=== PATIENT | female | born 1970 | race Caucasian/White ===

== ENCOUNTER 2024-07-30 12:39 | Emergency (ER) | payer MEDICAID ==
[~2024-07-30] VITALS: Ht 162.6 cm; Wt 49.5 kg
[~2024-07-30 12:39] MED LIST: ALPR-304 PO; ALPR-624 PO; CEPH-571 PO; DULO-31 PO; LANS30CA37 PO; RANI-320 PO
[2024-07-30 12:50] VITALS: TEMP 97.5
[2024-07-30] MEDS: ipratropium/albuterol 3ml nebule NEB PRN (13:02)
[2024-07-30] MEDS ORDERED: albuterol 2.5 MG/3 ML nebule CONTNEB PRN (13:05)
[2024-07-30] MEDS: methylPREDNISolone sod succ 125mg/2ml vial IV ONE (13:07)
[2024-07-30 13:09] VITALS: PULSE 87; RESP 16; O2SAT 97
[2024-07-30] MEDS: magnesium sulf-water 2g/50mL 50 ML IV ONE (13:11)
[2024-07-30] MEDS: COMMUNICATION ORDER 1 EA MISC MC ONE (13:20)
[2024-07-30 13:25] LABS: BASOPHILS # (AUTO) 0.1 X10'3 (0-0.2); BASOPHILS % (AUTO) 0.8 % (0-1); EOSINOPHILS # (AUTO) 0.2 X10'3 (0-0.9); EOSINOPHILS % (AUTO) 3.6 % (0-6); HEMATOCRIT 42.8 % (35.0-45.0); HEMOGLOBIN 14.6 g/dl (12.0-16.0); LYMPHOCYTES # (AUTO) 1.2 X10'3 (1.1-4.8); MEAN CORPUSCULAR HEMOGLOBIN 32.8 PG (27.0-31.0); MEAN CORPUSCULAR HGB CONC 34.2 g/dL (33.0-36.5); MEAN CORPUSCULAR VOLUME 95.9 FL (78-98); MEAN PLATELET VOLUME 7.1 FL (7.4-10.4); MONOCYTES # (AUTO) 0.7 X10'3 (0-0.9); MONOCYTES % (AUTO) 10.9 % (2-12); NEUTROPHILS # (AUTO) 4.6 X10'3 (1.8-7.7); NEUTROPHILS % (AUTO) 67.7 % (42-75); PLATELET COUNT 344 X10'3 (140-440); RED BLOOD COUNT 4.46 X10'6 (4.20-5.60); RED CELL DISTRIBUTION WIDTH 15.3 % (11.5-14.5); WHITE BLOOD COUNT 6.8 X10'3 (4.5-11.0)
[2024-07-30 13:28] VITALS: PULSE 96; RESP 26; O2SAT 99
[2024-07-30 13:46] LABS: ALBUMIN 3.4 G/DL (3.4-5.0); ANION GAP 9 (8-16); BLOOD UREA NITROGEN 11 MG/DL (7-18); BUN/CREATININE RATIO 15.3 (10.0-20.0); CALCIUM 8.5 MG/DL (8.5-10.1); CHLORIDE 111 MMOL/L (99-107); CREATININE 0.72 MG/DL (0.40-0.90); GLUCOSE 91 MG/DL (70-104); PRO BRAIN NATRIURETIC PEPTIDE 232 PG/ML (0-125); SODIUM 144 MMOL/L (135-145); TOTAL CARBON DIOXIDE 24.4 MMOL/L (24-32); eCRCL 71 ML/MIN; eGFR 85 ML/MIN
[2024-07-30] MEDS: ipratropium 0.5 MG/2.5ML nebule IH ONE (13:52)
[2024-07-30] MEDS: albuterol 2.5 MG/3 ML nebule NEB ONE (13:52)
[2024-07-30] MEDS ORDERED: AZIT-164 PO (14:59)
[2024-07-30] MEDS ORDERED: ALBU18HF2 INH (14:59)
[2024-07-30] MEDS ORDERED: PRED20TA PO (14:59)
[2024-07-30 15:06] VITALS: BP 116/82; PULSE 76; RESP 18; O2SAT 96
== END 2024-07-30 15:08 | disposition home or self-care (01) ==
LOC: ER 12:40
DX: J40 Bronchitis, not specified as acute or chronic (principal); I10 Essential (primary) hypertension; J44.9 Chronic obstructive pulmonary disease, unspecified; K21.9 Gastro-esophageal reflux disease without esophagitis; F41.9 Anxiety disorder, unspecified; F32.A Depression, unspecified; F41.0 Panic disorder [episodic paroxysmal anxiety]; F17.210 Nicotine dependence, cigarettes, uncomplicated; F15.90 Other stimulant use, unspecified, uncomplicated; Z88.0 Allergy status to penicillin; Z79.1 Long term (current) use of non-steroidal anti-inflammatories (NSAID); Z79.52 Long term (current) use of systemic steroids; Z98.890 Other specified postprocedural states; Z20.822 Contact with and (suspected) exposure to COVID-19
CPT/HCPCS: 36415; 71045; 80048; 83880; 84145; 84484; 85025; 87811; 93005; 94640; 96365; 96375; 99285; J2919; J7030; 94760

== ENCOUNTER 2024-07-31 13:20 | Inpatient (IN) | payer MEDICAID ==
[~2024-07-31] VITALS: Ht 162.6 cm; Wt 50.0 kg
[~2024-07-31 13:20] MED LIST changes: +ALBU18HF2 INH; +AZIT-164 PO; +PRED20TA PO
[2024-07-31 13:45] LABS: BASOPHILS % (AUTO) 0.1 % (0-1); EOSINOPHILS % (AUTO) 0.3 % (0-6); HEMATOCRIT 46.9 % (35.0-45.0); HEMOGLOBIN 15.7 g/dl (12.0-16.0); LYMPHOCYTES # (AUTO) 0.4 X10'3 (1.1-4.8); LYMPHOCYTES % (AUTO) 3.4 % (21-51); MEAN CORPUSCULAR HEMOGLOBIN 32.4 PG (27.0-31.0); MEAN CORPUSCULAR HGB CONC 33.5 g/dL (33.0-36.5); MEAN CORPUSCULAR VOLUME 96.6 FL (78-98); MEAN PLATELET VOLUME 7.2 FL (7.4-10.4); MONOCYTES # (AUTO) 0.3 X10'3 (0-0.9); MONOCYTES % (AUTO) 2.6 % (2-12); NEUTROPHILS # (AUTO) 11.8 X10'3 (1.8-7.7); NEUTROPHILS % (AUTO) 93.6 % (42-75); PLATELET COUNT 409 X10'3 (140-440); RED BLOOD COUNT 4.85 X10'6 (4.20-5.60); RED CELL DISTRIBUTION WIDTH 16.1 % (11.5-14.5); WHITE BLOOD COUNT 12.6 X10'3 (4.5-11.0)
[2024-07-31 14:42] LABS: ALBUMIN 4.1 G/DL (3.4-5.0); ANION GAP 17 (8-16); BLOOD UREA NITROGEN 12 MG/DL (7-18); BUN/CREATININE RATIO 15.8 (10.0-20.0); CALCIUM 9.5 MG/DL (8.5-10.1); CHLORIDE 110 MMOL/L (99-107); CREATININE 0.76 MG/DL (0.40-0.90); GLUCOSE 108 MG/DL (70-104); PRO BRAIN NATRIURETIC PEPTIDE 654 PG/ML (0-125); SODIUM 146 MMOL/L (135-145); TOTAL CARBON DIOXIDE 18.6 MMOL/L (24-32); eCRCL 68 ML/MIN; eGFR 80 ML/MIN
[2024-07-31] MEDS: ipratropium/albuterol 3ml nebule NEB SCH ×2 (16:22→19:00)
[2024-07-31 16:25] VITALS: PULSE 91; PULSE 94; RESP 16; RESP 18; O2SAT 95; O2SAT 99
[2024-07-31] MEDS: CefTRIAXone/D5W-Rocephin 1gm 50 ML IV ONE (17:18)
[2024-07-31] MEDS: normal saline 1000ML IV soln IVB ONE (17:19)
[2024-07-31] MEDS: methylPREDNISolone sod succ 125mg/2ml vial IV ONE (17:19)
[2024-07-31] MEDS ORDERED: magnesium sulf-water 4G/100mL 100 ML IV PRN (17:20)
[2024-07-31] MEDS ORDERED: mag hydrox/Alum hydrox/simeth 30ml oral suspension PO PRN (17:20)
[2024-07-31] MEDS ORDERED: magnesium hydroxide 30ml (MOM) UD suspension PO PRN (17:20)
[2024-07-31] MEDS ORDERED: potassium Cl 20 mEq SR tablet PO PRN ×2 (17:20)
[2024-07-31] MEDS ORDERED: ondansetron/PF 4mg/2ml inj IV PRN (17:20)
[2024-07-31] MEDS ORDERED: acetaminophen 325mg tablet PO PRN (17:20)
[2024-07-31] MEDS ORDERED: magnesium sulf-water 2g/50mL 50 ML IV PRN (17:20)
[2024-07-31] MEDS ORDERED: normal saline 1000ml 1,000 ML IV SCH (17:20)
[2024-07-31] MEDS ORDERED: magnesium Cl slow-release 64mg tablet PO PRN (17:20)
[2024-07-31] MEDS ORDERED: potassium Cl 40MEQ/1/2NS 520ml 520 ML IV PRN (17:20)
[2024-07-31] MEDS: acetaminophen 1,000mg/100ml IV 100 ML IV ONE (17:54)
[2024-07-31] MEDS ORDERED: ringers solution, lacted 1,000 ML IV SCH (18:05)
[2024-07-31] MEDS: ketorolac trometh 15mg/ml vial 15 MG/ML ML IV ONE (18:48)
[2024-07-31] MEDS: acetaminophen 325mg tablet PO STA (19:01)
[2024-07-31] MEDS: azithromycin/NS 500mg/250ml 250 ML IV ONE (19:01)
[2024-07-31] MEDS: hydrALAZINE 20mg/ml inj. IV STA (19:03)
[2024-07-31 19:17] VITALS: PULSE 103; RESP 18; O2SAT 94
[2024-07-31 19:27] VITALS: PULSE 101; RESP 20
[2024-07-31] MEDS: K and/or MAG REPLACEMENT MC SCH (19:44)
[2024-07-31] MEDS: docusate sod 100mg capsule PO SCH (20:42)
[2024-07-31] MEDS: amLODIPine 5mg tablet PO SCH (20:42)
[2024-07-31] MEDS: enoxaparin 40mg/0.4ml syringe SQ SCH (20:45)
[2024-07-31] MEDS: furosemide 40mg/4ml inj IV ONE (21:42)
[2024-07-31] MEDS: HYDROcodone/acetaminophen 5mg/325mg tablet PO STA (22:32)
[2024-07-31 22:42] VITALS: PULSE 101; RESP 18; O2SAT 92
[2024-07-31 22:45] LABS: BILIRUBIN,URINE NEGATIVE (Neg); CLARITY,URINE CLEAR (Clear); COLOR,URINE STRAW (Yellow); GLUCOSE, URINE NEGATIVE (Neg); KETONES,URINE NEGATIVE (Neg); LEUKOCYTE ESTERASE ,URINE NEGATIVE (Neg); NITRITES, URINE NEGATIVE (Neg); OCCULT BLOOD,URINE NEGATIVE (Neg); PH,URINE 6.5 (4.8-8.0); PROTEIN,URINE NEGATIVE (Neg); UROBILINOGEN,URINE 0.2 E.U/dL (0.2-1.0)
[2024-07-31 22:47] VITALS: PULSE 104; RESP 20
[2024-07-31 22:50] LABS: UA COLLECTION TYPE CLN CATCH MIDSTREAM
[2024-07-31 22:59] LABS: URINE AMPHETAMINE SCREEN NEGATIVE (Neg); URINE BARBITUATE SCREEN NEGATIVE (Neg); URINE BENZODIAZEPINES SCREEN NEGATIVE (Neg); URINE CANNABINOID SCREEN POSITIVE (Neg); URINE COCAINE SCREEN NEGATIVE (Neg); URINE METHADONE SCREEN NEGATIVE (Neg); URINE OPIATE SCREEN NEGATIVE (Neg); URINE PHENCYCLIDINE SCREEN NEGATIVE (Neg)
[2024-08-01] VITALS (9 sets, daily range): BP systolic 161; BP diastolic 110; PULSE 65–102; RESP 16–20; TEMP 98.6; O2SAT 90–98
[2024-08-01 02:28] LABS: BASOPHILS % (AUTO) 0 % (0-1); EOSINOPHILS % (AUTO) 0.3 % (0-6); HEMATOCRIT 46.4 % (35.0-45.0); HEMOGLOBIN 15.5 g/dl (12.0-16.0); LYMPHOCYTES # (AUTO) 0.3 X10'3 (1.1-4.8); LYMPHOCYTES % (AUTO) 3.8 % (21-51); MEAN CORPUSCULAR HEMOGLOBIN 32.1 PG (27.0-31.0); MEAN CORPUSCULAR HGB CONC 33.4 g/dL (33.0-36.5); MEAN CORPUSCULAR VOLUME 96.1 FL (78-98); MEAN PLATELET VOLUME 7.2 FL (7.4-10.4); MONOCYTES # (AUTO) 0.1 X10'3 (0-0.9); MONOCYTES % (AUTO) 1.6 % (2-12); NEUTROPHILS # (AUTO) 8.3 X10'3 (1.8-7.7); NEUTROPHILS % (AUTO) 94.3 % (42-75); PLATELET COUNT 377 X10'3 (140-440); RED BLOOD COUNT 4.83 X10'6 (4.20-5.60); RED CELL DISTRIBUTION WIDTH 15.6 % (11.5-14.5); WHITE BLOOD COUNT 8.8 X10'3 (4.5-11.0)
[2024-08-01 02:34] LABS: ANION GAP 12 (8-16); BLOOD UREA NITROGEN 12 MG/DL (7-18); CALCIUM 9.2 MG/DL (8.5-10.1); CHLORIDE 103 MMOL/L (99-107); GLUCOSE 148 MG/DL (70-104); POTASSIUM 3.7 MMOL/L (3.5-5.1); SODIUM 144 MMOL/L (135-145); eCRCL 65 ML/MIN; eGFR 75 ML/MIN
[2024-08-01] MEDS ORDERED: CefTRIAXone/D5W-Rocephin 1gm 50 ML IV SCH (08:00)
[2024-08-01] MEDS: methylPREDNISolone sod succ 125mg/2ml vial IV SCH (09:16)
[2024-08-01] MEDS ORDERED: AZIT500T PO (10:43)
[2024-08-01] MEDS ORDERED: LISI10TA27 PO (10:43)
[2024-08-01] MEDS ORDERED: FURO-150 PO (10:43)
[2024-08-01] MEDS: hydrALAZINE 20mg/ml inj. IV PRN (11:48)
== END 2024-08-01 13:08 | disposition home or self-care (01) | DRG 139 ==
LOC: ER 13:21 → ED HOLD 17:19 → UNDOADMIN 17:19 → ED HOLD 17:26 → ORTHO 4S 08-01 07:50
PROVIDERS: ADMIT Internal Medicine; ATTEND Internal Medicine
DX: J15.9 Unspecified bacterial pneumonia (principal); J96.01 Acute respiratory failure with hypoxia; R65.11 Systemic inflammatory response syndrome (SIRS) of non-infectious origin with acute organ dysfunction; I27.20 Pulmonary hypertension, unspecified; E87.29 Other acidosis; R65.10 Systemic inflammatory response syndrome (SIRS) of non-infectious origin without acute organ dysfunction; I27.81 Cor pulmonale (chronic); J44.0 Chronic obstructive pulmonary disease with (acute) lower respiratory infection; J44.1 Chronic obstructive pulmonary disease with (acute) exacerbation; I10 Essential (primary) hypertension; F32.A Depression, unspecified; F15.90 Other stimulant use, unspecified, uncomplicated; K21.9 Gastro-esophageal reflux disease without esophagitis; Z87.891 Personal history of nicotine dependence; Z88.0 Allergy status to penicillin
CPT/HCPCS: 36415; 71045; 80048; 80305; 81003; 83605; 83880; 84145; 84484; 85025; 87040; 87081; 87811; 93005; 94640; 94760; 99285; G0378; J0131; J0360; J0456; J0696; J1650; J1940; J2919; J7030; J7120

== ENCOUNTER 2025-03-28 08:02 | Emergency (ER) | payer MEDICAID ==
[~2025-03-28] VITALS: Ht 165.1 cm; Wt 50.7 kg
[~2025-03-28 08:02] MED LIST changes: -ALPR-304 PO; -ALPR-624 PO; -AZIT-164 PO; -CEPH-571 PO; -DULO-31 PO; +FURO-150 PO; -LANS30CA37 PO; +LISI10TA27 PO; -PRED20TA PO; -RANI-320 PO
[2025-03-28 08:06] VITALS: TEMP 97.8
--- NOTE | 2025-03-28 09:19 | RADIOLOGY REPORT ---
CLINICAL INDICATION: LEFT FOOT PAIN TECHNIQUE: 2 left DI FOOT,LIMITED (AP/LAT) Comparison: None FINDINGS/IMPRESSION: : There is no evidence of acute fracture or dislocation. Soft tissues are unremarkable.
--- NOTE | 2025-03-28 09:52 | Physician Documentation ---
History of Present Illness ~ Chief Complaint: Foot pain Stated Complaint: FOOT PAIN Time Seen by MD: 08:30 OK to notify your PCP?: Yes Primary Medical Doctor: Dr. Levine Mode of Arrival: [facility] 55-year-old female patient came to the emergency room because of left foot pain below the ankle joint for a few days. Patient does not recall any trauma or injury to that foot. No other complaints. Tetanus witin 5 years: No Medication Reconciliation Allergies: Coded Allergies: Penicillins (Verified Allergy, Unknown, 03/28/25) Scheduled Furosemide (Lasix), 20 MG PO DAILY Lisinopril (Lisinopril), 10 MG PO DAILY Scheduled PRN Albuterol Sulfate (Ventolin Hfa), 2 PUFFS INH Q4HPRN PRN for SOB or wheezing Past Medical History Past Medical History: Hypertension, Asthma, Bronchitis, COPD, Pneumonia, GERD, Pancreatitis, Anxiety, Depression, Panic Disorder Past Surgical History: orthopedic surgeries Alcohol Use: Sober Drug Use: methamphetamine Lives with: Family Lives In: Home Occupation: employed Review of Systems ROS As stated above in the HPI, otherwise all systems are reviewed and negative. Physical Exam Vital Signs: Temperature: 97.8, Source: Temporal, Heart Rate: 94, Respiratory Rate: 16, BP: 179/103, Pulse Oximetry: 100, Weight: 50.700 Physical Exam Reviewed vital signs and except for slightly elevated blood pressure all well within normal range. Const: Not in acute cardiopulmonary distress Head: Atraumatic Eyes: Normal Conjunctiva ENT: Normal External Ears, Nose and Mouth. Moist mucous membranes Neck: Full range of motion. No meningismus Resp: Clear to auscultation bilaterally. Normal work of breathing Cardio: Regular rate and rhythm, no murmurs. Skin well perfused Abd: Soft, non-tender, non-distended. Normal bowel sounds. No rebound or guarding Skin: No petechiae or rashes. Warm and dry Back: No midline or flank tenderness Ext: No cyanosis, or edema Local examination of the left foot: That is no deformities and no skin changes. Tenderness is in the heel area. Distal circulation sensation intact. No crepitus or bony tenderness. Neuro: Awake and alert Psych: Normal Mood and Affect Progress Results/Orders Results/Orders Orders - VANGIE ROYAL MD Foot,Limited (Ap/Lat) (03/28/25 08:55) Completed Orders - VANGIE ROYAL MD Foot,Limited (Ap/Lat) (03/28/25 08:55) Vital Signs 03/28/25 03/28/25 08:06 10:03 Temp 97.8 Pulse 94 78 Resp 16 14 B/P (MAP) 179/103 132/84 (100) Pulse Ox 100 99 Medical Decision Making Findings During the physical examination, the findings suggestive of acute life- threatening condition such as JVD, tracheal deviation, acidotic breathing, noisy stridorous breath sounds, pulses paradoxus, muffled heart sounds, unequal breath sounds, abdominal rigidity and rebound tenderness, focal neurological deficits, cool clammy skin, severe hypotension, severe tachycardia or bradycardia are absent. The left foot examination does not reveal any structural abnormalities. Circulation is intact. X-ray of the left foot is negative for bony injury or subluxation dislocation. Patient thinks it could be plantar fasciitis and I agreed it might be and provided her with a toe exercises. Explained the results to the patient and the patient will be discharged from the emergency room with follow up instruction. DISCLAIMER Inadvertent spelling and grammatical errors,inadvertent vp outcomes errors,syntax errors, grammatical errors, and spelling errors are likely due to EMR/dictation software use and do not reflect on the overall quality of patient care. Note that the electronic time recorded on this note does not necessarily reflect the actual time of the patient encounter. Departure Impression: Primary Impression: Left foot pain Condition: Stable Discharge Instructions: Sprains Additional Instructions: Thank you so much for visiting [facility] Emergency room. It could be plantar fasciitis and you can do told exercises as mentioned . Please ask your nurse or provider if you have questions about your care today and do not leave until all your questions have been answered. Please use any medications given as directed and follow-up with your doctor in the next 1-3 days. Please rest [place] your doctor to provide a referral to a window shade cutter and mounter. You may also use motrin and tylenol as needed for pain unless instructed otherwise by your provider or nurse. Indications for more urgent follow-up have been discussed, but you may return to the Emergency Department at ANY time for any worrisome or worsening symptoms. Referrals: NO PRIMARY CARE PROVIDER (PCP) Education Educated: Patient Educated regarding: diagnosis, treatment, need for follow up Signature Scribe Signature: x Attestation: VANGIE Reveles MD March 28, 2025 09:52
[2025-03-28 10:03] VITALS: BP 132/84; PULSE 78; RESP 14; O2SAT 99
== END 2025-03-28 10:06 | disposition home or self-care (01) ==
LOC: ER 08:03
DX: M79.672 Pain in left foot (principal); I10 Essential (primary) hypertension; K21.9 Gastro-esophageal reflux disease without esophagitis; F41.9 Anxiety disorder, unspecified; F32.A Depression, unspecified; F41.0 Panic disorder [episodic paroxysmal anxiety]; F15.90 Other stimulant use, unspecified, uncomplicated; J45.909 Unspecified asthma, uncomplicated; J44.9 Chronic obstructive pulmonary disease, unspecified; Z88.0 Allergy status to penicillin; Z79.899 Other long term (current) drug therapy; Z98.890 Other specified postprocedural states
CPT/HCPCS: 73620; 99283